=== PATIENT | male | born 1950 | race Hispanic/Latino ===

== ENCOUNTER 2018-07-10 22:00 | Emergency (ER) | payer SELFPAY ==
[2018-07-10 22:39] LABS: Bilirubin Negative (Negative); Blood, Urine Small (Negative); Clarity CLEAR (Clear); Glucose, Urine (Dipstick) 100 mg/dL (Negative); Leukocyte Negative (Negative); Nitrite Negative (Negative); Protein, Urine (Dipstick) 100 mg/dL (Neg-Trace); Specific Gravity, Urine 1.012 (1.002-1.036); Urobilinogen 0.2 mg/dL (0.2-1.0)
[2018-07-10 22:41] LABS: Bacteria/HPF Rare-Few HPF (None Seen); Hyaline Casts/LPF 0-3 HYALINE CAST LPF (0-3 Hyaline); Squamous Epithelial None Seen HPF (0-3); WBC/HPF None Seen HPF (0-3)
[2018-07-10 22:43] LABS: #Monocytes 0.2 thou/uL (0.11-0.59); #Neutrophils 9.3 thou/uL (1.40-6.50); %Basophils 0.3 % (0.0-1.0); %Eosinophils 0.2 % (0.0-10.0); %Lymphocytes 9.3 % (21.0-51.0); %Neutrophils 88.2 % (42.0-75.0); Hemoglobin 16.6 g/dL (14.0-18.0); Mean Corpuscular HGB CONC 34.2 g/dL (32.0-36.0); Mean Corpuscular Hemoglobin 28.7 pg (27.0-31.0); Mean Corpuscular Volume 83.8 fL (78.0-98.0); Mean Platelet Volume 7.5 fL (7.4-10.4); Platelet Count 224 thou/uL (130-400); RBC Distribution Width 12.7 % (11.5-14.5); Red Blood Cell (RBC) Count 5.79 mill/uL (4.70-6.10); White Blood Cell (WBC) Count 10.5 thou/uL (4.8-10.8)
[2018-07-10 23:09] LABS: ALT (SGPT) 29 U/L (8-55); AST (SGOT) 34 U/L (5-34); Albumin 4.5 g/dL (3.4-4.8); Alkaline Phosphatase 99 U/L (40-150); Anion Gap 18 mmol/L (10-20); BUN (Urea Nitrogen) 26 mg/dL (8.4-25.7); Bilirubin, Total 0.6 mg/dL (0.2-1.2); Calc. Creatinine Clearance 0 mL/min (70-130); Calcium 9.2 mg/dL (7.8-10.44); Carbon Dioxide 21 mmol/L (23-31); Chloride 102 mmol/L (98-107); Estimated GFR-MDRD 46; Globulin 3.8 g/dL (2.4-3.5); Glucose 195 mg/dL (80-115); Potassium 3.7 mmol/L (3.5-5.1); Protein, Total 8.3 g/dL (5.8-8.1); Sodium 137 mmol/L (136-145)
[2018-07-10] MEDS ORDERED: Ondansetron HCl/PF 4 MG/2 ML Vial ONE (23:29)
[2018-07-10] MEDS ORDERED: Ketorolac Tromethamine 30 MG/ML VIAL ONE (23:29)
--- NOTE | 2018-07-11 08:47 | CT ---
PRELIMINARY REPORT/[facility]/EMERGENTY AFTER-HOURS PROCEDURE CT Abdomen and Pelvis Without Intravenous Contrast EXAM DATE/TIME: 07/10/2018 11:57 PM CLINICAL HISTORY: 67 years old, male; Pain; Abdominal pain; Flank; Left; Patient HX: Left flank pain x 2 days, decrease d urine, feels hot when urinating. TECHNIQUE: Axial computed tomography images of the abdomen and pelvis without intravenous contrast. Coronal refo rmatted images were created and reviewed. COMPARISON: No relevant prior studies available. FINDINGS: ABDOMEN: Limited evaluation without enteric or IV contrast. Calcified granuloma, anterior right lung base. Liver is decreased in density, consistent with fatty infiltration. Gallbladder, spleen, adrenals and pancreas show no concerning finding. Right kidney demonstrates a punctate nonobstructing calculus. Left kidney demonstrates an upper pole cyst and perinephric stranding with mild hydroureteronephrosis. No ureter stone is seen although ther e is a 2 mm stone in the bladder No evidence of bowel obstruction, pneumoperitoneum or free abdominal fluid. Atherosclerotic change present in the aorta, without aneurysm. PELVIS: Appendix is not seen. No RLQ inflammation to suggest appendicitis. No evidence of acute diverticulitis. Prostate gland is normal in size. Degenerative changes are seen in the lumbar spine with disc height loss. IMPRESSION: Mild left hydroureteronephrosis which may be secondary to a 2 mm stone which has passed into the blad freida at the time of the CT. Thank you for allowing us to participate in the care of your patient. Dictated and Authenticated by: Rocco Holder MD 07/11/2018 1:07 AM Central Time ([place] & [place]) FINAL REPORT CT ABDOMEN AND PELVIS WITHOUT CONTRAST: Date: 07/10/18 FINDING/IMPRESSION: I agree with the preliminary report given by Jeramy. POS: MARILY
== END 2018-07-11 02:08 | disposition home or self-care (01) ==
LOC: ERS 22:00
DX: N13.2 Hydronephrosis with renal and ureteral calculous obstruction (principal); E78.5 Hyperlipidemia, unspecified; I10 Essential (primary) hypertension; M10.9 Gout, unspecified; F32.9 Major depressive disorder, single episode, unspecified
CPT/HCPCS: 36415; 74176; 80053; 81003; 81015; 85025; 96374; 96375; J1885; J2405

== ENCOUNTER 2019-06-21 13:17 | Inpatient (IN) | payer SELFPAY ==
[~2019-06-21 13:17] MED LIST: Heparin 10,000 UNITS/ 10 ML VIAL ONE; Iopamidol 370 76% 100 ML VIAL ONE; Iopamidol 370 76% 50 ML VIAL FS ONE; Nitroglycerin 50 MG/250 ML BOT ONE
[2019-06-21] MEDS ORDERED: Aspirin Chewable 81 MG TAB ONE (13:23)
[2019-06-21 13:34] LABS: #Eosinphils 0.1 thou/uL (0.0-0.7); #Lymphocytes 2.2 thou/uL (1.20-3.40); #Monocytes 0.4 thou/uL (0.11-0.59); #Neutrophils 6.2 thou/uL (1.40-6.50); %Basophils 0.3 % (0.0-1.0); %Eosinophils 0.6 % (0.0-10.0); %Lymphocytes 24.9 % (21.0-51.0); %Neutrophils 70.2 % (42.0-75.0); Hemoglobin 17.7 g/dL (14.0-18.0); Mean Corpuscular HGB CONC 34.2 g/dL (32.0-36.0); Mean Corpuscular Hemoglobin 28.8 pg (27.0-31.0); Mean Corpuscular Volume 84.3 fL (78.0-98.0); Mean Platelet Volume 8.4 fL (7.4-10.4); Platelet Count 179 thou/uL (130-400); RBC Distribution Width 12.8 % (11.5-14.5); Red Blood Cell (RBC) Count 6.14 mill/uL (4.70-6.10); White Blood Cell (WBC) Count 8.9 thou/uL (4.8-10.8)
[2019-06-21 13:42] LABS: PTT 28.2 SEC (22.9-36.1); Prothrombin Time 13.1 SEC (12.0-14.7)
--- NOTE | 2019-06-21 13:42 | RAD ---
Exam: Chest one view HISTORY:Chest pain Comparison: 08/02/2014 FINDINGS: Cardiac silhouette: Normal Pulmonary vessels: Normal Costophrenic angles: Clear Stable pleural-based mass in the right hemithorax. LUNGS: No masses or consolidation. Pneumothorax: None Osseous abnormalities: None IMPRESSION: No acute cardiopulmonary process.
[2019-06-21 13:56] LABS: ALT (SGPT) 34 U/L (8-55); AST (SGOT) 42 U/L (5-34); Albumin 4.7 g/dL (3.4-4.8); Alkaline Phosphatase 94 U/L (40-150); Anion Gap 18 mmol/L (10-20); BUN (Urea Nitrogen) 15 mg/dL (8.4-25.7); Calc. Creatinine Clearance 0 mL/min (70-130); Calcium 9.5 mg/dL (7.8-10.44); Carbon Dioxide 22 mmol/L (23-31); Chloride 102 mmol/L (98-107); Estimated GFR-MDRD 77; Globulin 3.8 g/dL (2.4-3.5); Glucose 177 mg/dL (80-115); Potassium 3.5 mmol/L (3.5-5.1); Protein, Total 8.5 g/dL (5.8-8.1); Sodium 138 mmol/L (136-145)
[2019-06-21 14:19] LABS: CKMB 18.3 ng/mL (0-6.6)
[2019-06-21] MEDS ORDERED: Heparin 10,000 UNITS/1 ML VIAL ONE ×2 (14:24→15:31)
[2019-06-21] MEDS ORDERED: Fentanyl 100 MCG/2 ML VIAL ONE ×2 (14:25→15:31)
[2019-06-21] MEDS ORDERED: Aggrastat 12.5 MG/250 ML 250 ML ONE (14:39)
[2019-06-21] MEDS ORDERED: Adenosine 6 MG/2 ML VIAL ONE (15:10)
[2019-06-21] MEDS ORDERED: TICAGRELOR 90 MG TABLET ONE ×2 (16:02)
[2019-06-21] MEDS: Sodium Chloride 0.9% 1,000 ML IV SCH (16:30)
[2019-06-21 16:50] VITALS: BMI 33.8
[2019-06-21] MEDS ORDERED: Nitroglycerin 0.4 MG TAB (25 Tab Bottle) SL PRN (17:11)
[2019-06-21] MEDS ORDERED: Milk Of Magnesia 30 ML UDCUP PO PRN (17:13)
[2019-06-21] MEDS ORDERED: traMADol HCl 50 MG TAB PO PRN (17:13)
[2019-06-21] MEDS ORDERED: cloNIDine 0.1 MG TAB PO PRN (17:13)
[2019-06-21] MEDS ORDERED: Aggrastat 12.5 MG/250 ML 250 ML IVPB SCH (17:15)
[2019-06-21] MEDS ORDERED: TICAGRELOR 90 MG TABLET PO SCH ×2 (17:15→21:00)
[2019-06-21] MEDS ORDERED: Lisinopril 2.5 MG TAB PO SCH (17:30)
[2019-06-21] MEDS ORDERED: Carvedilol 3.125 MG TAB PO SCH (17:30)
[2019-06-21] MEDS ORDERED: Ondansetron PF 4 MG/2 ML Vial IVP PRN (17:44)
[2019-06-21] MEDS ORDERED: ALPRAZolam 0.25 MG TAB PO PRN (17:46)
[2019-06-21] MEDS ORDERED: Fentanyl 100 MCG/2 ML VIAL SLOW IVP PRN (17:47)
[2019-06-21] MEDS ORDERED: Potassium Chloride 40 MEQ in Premix Bag 1 BAG IVPB SCH (18:00)
[2019-06-21] MEDS ORDERED: Nitroglycerin 50 MG/250 ML BOT 250 ML IVPB SCH (18:15)
[2019-06-21 18:24] LABS: Troponin I 44.878 ng/mL (< 0.028)
--- NOTE | 2019-06-21 18:44 | HP ---
REASON FOR ADMISSION: Acute anterior myocardial infarction. HISTORY OF PRESENT ILLNESS: Mr. Talbot is a 68-year-old gentleman, who has been having chest pain for 3 days, off and on, and became intense and unrelenting today. Much of the pain was across the upper back and across the shoulders. The patient had severe ST-elevation to the top of the R-waves in the anterior leads and acute myocardial infarction was diagnosed. The patient has history of hypertension and hypercholesterolemia, also history of prostatism. ALLERGIES: NONE KNOWN. MEDICATIONS: List is pending at the present time, the patient did have hypertension, and he was also on some medicine for prostatism. SOCIAL HISTORY: The patient has a very supportive family. There are multiple daughters here, who it sounds like really had strongly encouraged him to come in for medical attention. No previous cardiac history. The patient does not use tobacco. PHYSICAL EXAMINATION: GENERAL: This is an ill-appearing 68-year-old man. The patient's family indicated that the patient was diaphoretic and looked very bad at home, and at the present time, he looks critically ill in the emergency room. VITAL SIGNS: His blood pressure is still in 140s systolic. The pulse is in the 80s. The patient was somewhat diaphoretic. NECK: Neck veins normal. Carotid, normal upstrokes. LUNGS: Clear anteriorly and laterally. CARDIAC: Normal S1, normal S2. ABDOMEN: Soft and nontender. EXTREMITIES: Warm and dry. No clubbing or cyanosis or edema. He has good pedal pulses. DIAGNOSTIC STUDIES: EKG as outlined above. ASSESSMENT: 1. Acute anterior myocardial infarction with hyperacute ST segment elevation ("Scribner'). 2. History of hypertension. 3. History of hypercholesterolemia. PLAN: Recommended going to the cardiac catheterization lab in emergency basis. Discussed risk with the family. Discussed risk of stroke, heart attack, iodine allergy, loss of blood supply to leg or kidney, stent thrombosis, stent restenosis. The patient understood and wished to proceed. We did find an acutely occluded proximal LAD, where stenting was done as per the notes in the chart. The patient did have distal atherosclerosis throughout the LAD, had slow reflow, did require intracoronary adenosine, which did help. Prognosis guarded. Discussed in detail with the family. OTHER DIAGNOSES: 1. Hypertension. 2. Hypercholesterolemia. 3. Suspect diabetes, diffusely diseased vessel we will draw hemoglobin A1c in the morning. 4. The patient also has a history of previous stroke with severe left-sided weakness, unable to move the left arm. Job ID: [id number]
[2019-06-21] MEDS ORDERED: Potassium Chloride 40 MEQ in Sodium Chloride 0.9% 250 ML 250 ML IVPB SCH (19:00)
[2019-06-21] MEDS: Atorvastatin Calcium 40 MG TAB PO SCH (20:55)
[2019-06-21] MEDS: Tamsulosin HCl 0.4 MG CAP PO SCH (20:55)
[2019-06-21 22:34] LABS: #Basophils 0.1 thou/uL (0.0-0.2); #Lymphocytes 1.1 thou/uL (1.20-3.40); #Monocytes 0.4 thou/uL (0.11-0.59); #Neutrophils 7.4 thou/uL (1.40-6.50); %Basophils 0.8 % (0.0-1.0); %Eosinophils 0.3 % (0.0-10.0); %Lymphocytes 12.6 % (21.0-51.0); %Monocytes 4.6 % (0.0-10.0); %Neutrophils 81.8 % (42.0-75.0); Hemoglobin 14.8 g/dL (14.0-18.0); Mean Corpuscular HGB CONC 34.2 g/dL (32.0-36.0); Mean Corpuscular Hemoglobin 28.8 pg (27.0-31.0); Mean Corpuscular Volume 84.3 fL (78.0-98.0); Mean Platelet Volume 8.4 fL (7.4-10.4); Platelet Count 183 thou/uL (130-400); RBC Distribution Width 12.8 % (11.5-14.5); Red Blood Cell (RBC) Count 5.15 mill/uL (4.70-6.10); White Blood Cell (WBC) Count 9.1 thou/uL (4.8-10.8)
[2019-06-22 00:14] LABS: Troponin I 90.839 ng/mL (< 0.028)
[2019-06-22 04:29] LABS: #Lymphocytes 1.3 thou/uL (1.20-3.40); #Monocytes 0.6 thou/uL (0.11-0.59); #Neutrophils 7.8 thou/uL (1.40-6.50); %Eosinophils 0.2 % (0.0-10.0); %Lymphocytes 13.5 % (21.0-51.0); %Monocytes 6.4 % (0.0-10.0); %Neutrophils 79.8 % (42.0-75.0); Hemoglobin 14.9 g/dL (14.0-18.0); Mean Corpuscular HGB CONC 34.8 g/dL (32.0-36.0); Mean Corpuscular Hemoglobin 29.6 pg (27.0-31.0); Mean Corpuscular Volume 84.9 fL (78.0-98.0); Mean Platelet Volume 8.1 fL (7.4-10.4); Platelet Count 190 thou/uL (130-400); RBC Distribution Width 12.7 % (11.5-14.5); Red Blood Cell (RBC) Count 5.04 mill/uL (4.70-6.10); White Blood Cell (WBC) Count 9.8 thou/uL (4.8-10.8)
[2019-06-22 04:46] LABS: ALT (SGPT) 48 U/L (8-55); AST (SGOT) 194 U/L (5-34); Albumin 3.8 g/dL (3.4-4.8); Alkaline Phosphatase 64 U/L (40-150); Anion Gap 13 mmol/L (10-20); BUN (Urea Nitrogen) 12 mg/dL (8.4-25.7); Bilirubin, Total 1.2 mg/dL (0.2-1.2); Calc. Creatinine Clearance 127 mL/min (70-130); Calcium 8.7 mg/dL (7.8-10.44); Carbon Dioxide 22 mmol/L (23-31); Cardiac Risk 4.9 (Less than 4.5); Chloride 104 mmol/L (98-107); Cholesterol 166 mg/dl (< 200 Desired); Estimated GFR-MDRD Greater than 90; Globulin 2.9 g/dL (2.4-3.5); Glucose 140 mg/dL (80-115); HDL Cholesterol 34 mg/dL (>60 Neg Risk); LDL Cholesterol, Calculated 104 mg/dL; Potassium 3.5 mmol/L (3.5-5.1); Protein, Total 6.7 g/dL (5.8-8.1); Sodium 135 mmol/L (136-145); Triglycerides 141 mg/dL (Less than 150)
[2019-06-22] MEDS ORDERED: Potassium Chloride 20 MEQ TAB PO SCH (08:15)
--- NOTE | 2019-06-22 08:58 | PRG ---
DATE OF SERVICE: 06/22/2019 SUBJECTIVE: Mr. Talbot is feeling better today. He is not having chest pain or pressure. He is having a little bit of oozing from the groin site, but no significant bleeding. OBJECTIVE: VITAL SIGNS: Blood pressure is 120 systolic, pulse is 66 and it is sinus. LUNGS: Clear. CARDIAC: Normal S1 and normal S2. ABDOMEN: Soft and nontender. EXTREMITIES: There is no clubbing. No cyanosis. No edema. The groin site is soft. PERTINENT LABORATORY DATA: The peak troponin was 90.839. The potassium is 3.5. The hemoglobin A1c is 7 compatible with diabetes. EKG does show improved ST segments with biphasic T-waves compatible with somewhat of recovery pattern. ASSESSMENT: 1. Status post anterior myocardial infarction with successful stent implantation. 2. Diffuse atherosclerosis distal in the same vessel. 3. Diabetes. 4. Mixed hyperlipidemia. 5. Prostatism required Barr catheter. PLAN: 1. Lisinopril will be increased. 2. Carvedilol, looks like low-dose at the present time to be tolerated, dose to be increased as heart rate tolerates. 3. We will need diabetic teaching. 4. Can discontinue Barr later today. 5. Statins. 6. Aspirin. 7. Brilinta. 8. Echocardiogram in a few days to re-evaluate left ventricular function, possibly to be done tomorrow and hopefully can go to a regular room later today or tomorrow. Long-term prognosis guarded. With his diabetes, it is important that he lose weight and exercise on a regular basis as well as take medications. Job ID: [id number]
[2019-06-22] MEDS ORDERED: Lisinopril 2.5 MG TAB PO SCH (09:00)
[2019-06-22] MEDS: Aspirin Chewable 81 MG TAB PO SCH (09:40)
[2019-06-22] MEDS: Carvedilol 3.125 MG TAB PO SCH ×2 (09:41→16:57)
[2019-06-22] MEDS: Lisinopril 5 MG TAB PO SCH ×2 (09:44→21:54)
[2019-06-22] MEDS: TICAGRELOR 90 MG TABLET PO SCH ×2 (09:58→21:54)
[2019-06-22] MEDS: Sodium Chloride 0.9% 1,000 ML IV SCH (17:06)
[2019-06-22] MEDS: Atorvastatin Calcium 40 MG TAB PO SCH (21:53)
[2019-06-22] MEDS: Tamsulosin HCl 0.4 MG CAP PO SCH (21:54)
[2019-06-23] MEDS: TICAGRELOR 90 MG TABLET PO SCH ×2 (09:12→21:33)
[2019-06-23] MEDS: Carvedilol 3.125 MG TAB PO SCH (09:12)
[2019-06-23] MEDS: Lisinopril 5 MG TAB PO SCH ×2 (09:12→21:32)
[2019-06-23] MEDS: Aspirin Chewable 81 MG TAB PO SCH (09:12)
--- NOTE | 2019-06-23 13:15 | PRG ---
DATE OF SERVICE: 06/23/2019 SUBJECTIVE: Mr. Talbot is feeling well today. No complaints. No chest pain or pressure. He has been up walking with the therapist. His daughter says he walks with a cane at home. OBJECTIVE: VITAL SIGNS: Blood pressure 110/60. Pulse 70, it is regular. LUNGS: Clear. CARDIAC: Normal S1. Normal S2. ABDOMEN: Soft and nontender. EXTREMITIES: No clubbing, cyanosis, or edema. ASSESSMENT: 1. Status post anterior myocardial infarction, treated with emergency stent implantation. 2. Diabetes. 3. History of hypertension. 4. Hypercholesterolemia. PLAN: 1. Increase statin to high intensity. 2. Increase carvedilol. 3. Continue BRIGITTE inhibitor, aspirin, and Brilinta. Probably home tomorrow. 4. Echocardiogram to re-evaluate left ventricular function prior to discharge. Job ID: [id number]
[2019-06-23] MEDS: Carvedilol 6.25 MG TAB PO SCH (16:26)
[2019-06-23] MEDS ORDERED: Carvedilol 3.125 MG TAB PO SCH (17:00)
[2019-06-23] MEDS ORDERED: Rosuvastatin 20 MG TAB PO SCH (21:00)
[2019-06-23] MEDS: Tamsulosin HCl 0.4 MG CAP PO SCH (21:32)
[2019-06-24] MEDS: Lisinopril 5 MG TAB PO SCH (08:34)
[2019-06-24] MEDS: Carvedilol 6.25 MG TAB PO SCH (08:34)
[2019-06-24] MEDS: TICAGRELOR 90 MG TABLET PO SCH (08:34)
[2019-06-24] MEDS: Aspirin Chewable 81 MG TAB PO SCH (08:34)
[2019-06-24 11:09] VITALS: BP 109/65; TEMP 98.2
--- NOTE | 2019-06-24 15:36 | DIS ---
DATE OF ADMISSION: 06/21/2019 DATE OF DISCHARGE: 06/24/2019 HISTORY: Mr. Talbot is doing well today. No chest pain or pressure. He is ready for discharge. His lungs are clear. Cardiac, normal S1, normal S2. FINAL DIAGNOSES: 1. Status post anterior myocardial infarction. 2. Hypertension. 3. Diabetes. 4. Hypercholesterolemia. 5. Prostatism. MEDICATIONS AT TIME OF DISCHARGE: 1. Aspirin 81 mg a day. 2. Brilinta 90 mg twice a day. 3. Crestor 40 mg a day. 4. Carvedilol 6.25 mg twice a day. 5. Lisinopril 5 mg twice a day. 6. Flomax 0.4 mg at bedtime. Please see the admission note. HOSPITAL COURSE: Mr. Talbot came to the hospital critically ill with severe EKG changes compatible with acute anterior myocardial infarction. He was taken urgently to the cardiac catheterization lab. He was found to have a proximal LAD occlusion, 50% mid circumflex lesion, 50% right coronary lesion with some aneurysmal dilatation of that vessel. The patient was treated percutaneously. There were 2 stents placed. The distal vessel was VERY DIFFUSELY DISEASED. However, the proximal area was treated with a 3.5 x 20 mm drug-coated stent and it was overlapped with a 3.0 x 32 mm stent. The distal stent was placed first. All the proximal and mid segment was dilated 3.5 mm to distal to 3.0. The patient's ejection fraction 40%. The patient really did very well in the hospital. He did have urinary retention. He had known prostatism. He had a Barr catheter overnight that was removed the next morning. His peak troponin was 90.839. Sodium is 135, creatinine is 0.78. The patient had a cholesterol drawn on the 4th, the LDL was 104, HDL was 34, triglyceride was 141. The patient had the heart failure medicines titrated up. The ejection fraction yesterday on echo was 40% to 45%. The patient also has diabetes. The hemoglobin A1c was elevated at 7. The patient is obese. The patient is released home. For the present time, his blood sugars were really not elevated; however, just slightly out of the normal range at 111. I think if he changes his diet and exercises, can probably be treated this way. I did not start any diabetes medicine presently. The family was taught about the importance of weight loss, exercise and change in diet. The patient will be followed up in the office. We gave him samples of Brilinta. The family indicated they are not sure he is going to be able to afford it long-term, therefore we gave samples. If we have to, we can change him to Plavix, Brilinta is the superior medicine, but I think he cannot afford it. We gave him Plavix 600 mg loading dose, then 75 a day and stop the Brilinta, if they are unable to afford that long-term. The patient can be released home at this time with a guarded long-term prognosis. Job ID: [id number]
== END 2019-06-24 15:32 | disposition home or self-care (01) | DRG 247 ==
LOC: ERS 13:17 → CCL 14:12 → CCU 14:30 → 2NO 06-22 16:43
PROVIDERS: ADMIT Internal Medicine Cardiovascular Disease; ATTEND Internal Medicine Cardiovascular Disease
PROC: 027035Z Dilation of Coronary Artery, One Artery with Two Drug-eluting Intraluminal Devices, Percutaneous Approach (ICD-10-PCS; principal; 2019-06-21)
PROC: 4A023N7 Measurement of Cardiac Sampling and Pressure, Left Heart, Percutaneous Approach (ICD-10-PCS; 2019-06-21)
PROC: B2111ZZ Fluoroscopy of Multiple Coronary Arteries using Low Osmolar Contrast (ICD-10-PCS; 2019-06-21)
PROC: B2151ZZ Fluoroscopy of Left Heart using Low Osmolar Contrast (ICD-10-PCS; 2019-06-21)
DX: I21.09 ST elevation (STEMI) myocardial infarction involving other coronary artery of anterior wall (principal); I10 Essential (primary) hypertension; E78.00 Pure hypercholesterolemia, unspecified; E11.9 Type 2 diabetes mellitus without complications; E78.2 Mixed hyperlipidemia; N40.0 Benign prostatic hyperplasia without lower urinary tract symptoms; Z79.899 Other long term (current) drug therapy
CPT/HCPCS: 36415; 36416; 71045; 76942; 80053; 80061; 82553; 83036; 83880; 84484; 85025; 85347; 85610; 85730; 92928; 92977; 93005; 93010; 93306; 93458; 93798; 96365; 96374; 96376; C1725; C1769; C1874; C1887; C9600; J0153; J1644; J2405; J3010; J3246; J3480; J7050; Q9967

== ENCOUNTER 2019-06-25 22:06 | Inpatient (IN) | payer SELFPAY ==
[2019-06-25] MEDS ORDERED: Ondansetron PF 4 MG/2 ML Vial ONE ×2 (22:38→22:48)
[2019-06-25] MEDS ORDERED: Morphine 2 MG/ML SYRINGE ONE (22:41)
[2019-06-25] MEDS ORDERED: Heparin 10,000 UNITS/1 ML VIAL ONE ×2 (22:47→23:54)
[2019-06-25] MEDS ORDERED: Nitroglycerin 100MG/250ML BOT 250 ML ONE (22:48)
[2019-06-25] MEDS ORDERED: Lidocaine 1% (PF) 30 ML VIAL ONE (22:48)
[2019-06-25 22:52] LABS: ALT (SGPT) 23 U/L (8-55); AST (SGOT) 25 U/L (5-34); Alkaline Phosphatase 89 U/L (40-150); Anion Gap 13 mmol/L (10-20); BUN (Urea Nitrogen) 13 mg/dL (8.4-25.7); Bilirubin, Total 1.7 mg/dL (0.2-1.2); Calc. Creatinine Clearance 0 mL/min (70-130); Calcium 9.5 mg/dL (7.8-10.44); Carbon Dioxide 21 mmol/L (23-31); Chloride 101 mmol/L (98-107); Estimated GFR-MDRD 65; Globulin 3.6 g/dL (2.4-3.5); Glucose 172 mg/dL (80-115); Potassium 3.6 mmol/L (3.5-5.1); Protein, Total 7.6 g/dL (5.8-8.1); Sodium 131 mmol/L (136-145)
[2019-06-25 22:54] LABS: Mean Corpuscular HGB CONC 34.8 g/dL (32.0-36.0); Mean Corpuscular Hemoglobin 29.3 pg (27.0-31.0); Mean Platelet Volume 8.7 fL (7.4-10.4); Platelet Count 202 thou/uL (130-400); RBC Distribution Width 12.6 % (11.5-14.5); Red Blood Cell (RBC) Count 5.46 mill/uL (4.70-6.10); White Blood Cell (WBC) Count 18.2 thou/uL (4.8-10.8)
--- NOTE | 2019-06-25 23:05 | RAD ---
FRONTAL RADIOGRAPH CHEST: 06/25/2019 HISTORY: Myocardial infarction. COMPARISON: 06/21/2019 FINDINGS: There is a stable mass density overlying the right upper lobe region, unchanged when compared to stud ies dating back to 08/02/2014. No pneumothorax, pleural fluid, focal consolidation, or alveolar neli a. IMPRESSION: No acute findings. POS: OFF
[2019-06-25 23:15] LABS: Band 9 % (5-11); Lymphocytes 9 % (21-51); MDiff Complete? YES; Monocytes 5 % (0-10); Neutrophil 76 % (42-75)
[2019-06-25 23:17] LABS: CKMB 3.1 ng/mL (0-6.6)
[2019-06-25] MEDS ORDERED: Fentanyl 100 MCG/2 ML VIAL ONE (23:27)
[2019-06-25] MEDS ORDERED: Aggrastat 12.5 MG/250 ML 250 ML ONE (23:52)
[2019-06-26] MEDS ORDERED: Acetaminophen/Codeine 30-300mg Tablet PO PRN ×2 (00:39)
[2019-06-26] MEDS ORDERED: Nitroglycerin 0.4 MG TAB (25 Tab Bottle) SL PRN (00:39)
[2019-06-26] MEDS ORDERED: Sodium Chloride 0.9% 200 ML IV PRN (00:39)
[2019-06-26] MEDS ORDERED: TICAGRELOR 90 MG TABLET PO SCH (00:45)
[2019-06-26 00:47] VITALS: BMI 33.2
[2019-06-26] MEDS ORDERED: Aggrastat 12.5 MG/250 ML 250 ML IVPB SCH (01:00)
[2019-06-26] MEDS ORDERED: Heparin 1,000 UNITS/ML VIAL SLOW IVP SCH (01:00)
[2019-06-26] MEDS: Sodium Chloride 0.9% 1,000 ML IV SCH ×2 (01:24→12:13)
--- NOTE | 2019-06-26 02:07 | HP ---
REASON FOR ADMISSION: Recurrent chest pain, abnormal EKG. HISTORY OF PRESENT ILLNESS: Mr. Wan Talbot is a 68-year-old gentleman. The patient presented with an extensive anterior myocardial infarction on 06/21/2019. The patient had SEVERE ST elevation in the anterior leads, was taken to the cardiac catheterization lab, was found to have a proximal LAD occlusion. This was successfully stented. Two stents were placed. A 3.0 x 32 mm stent and a 3.5 x 20 mm stent. There was a relatively disease-free segments of only just a very short segment of the LAD and then diffuse atherosclerosis throughout the mid and distal vessel throughout the vessel. The circumflex and the right coronary had 50% nonobstructive plaques. The patient had a troponin level of 90.839. The patient was doing well. The ejection fraction approximately was in the 40% range. The patient was released home yesterday. He is on aspirin, Plavix, carvedilol, lisinopril, Crestor, and also Brilinta. He was given samples of Brilinta. The patient went home. The family said he did not take the aspirin, but that would be just this morning's dose, and they did not fill the medicines till today, so he did not get the other medicines till this evening. He had some upper shoulder pain, which was similar to his angina. Apparently, one of the family members gave him some nitroglycerin, which he thought may have helped. The patient then according to the family, got up out of bed. He has had a previous stroke and he fell and when he was on the ground, he did report some shoulder pain, therefore he was brought to the emergency room. He had some ST elevation in the anterior leads and a possible acute FL was diagnosed, and we were called for an emergency procedure. PAST MEDICAL HISTORY: He has had a previous stroke, diabetes recently diagnosed. MEDICATIONS: As outlined above. ALLERGIES: NONE KNOWN. SOCIAL HISTORY: He has a very supportive family. PAST SURGICAL HISTORY: As outlined above. REVIEW OF SYSTEMS: CONSTITUTIONAL: No significant weight gain or loss. VISION: No changes. HEARING: No changes. PULMONARY: No cough or wheezing. GASTROINTESTINAL: No nausea, vomiting, or diarrhea. PHYSICAL EXAMINATION: GENERAL: This was an elderly gentleman, resting comfortably. VITAL SIGNS: Blood pressure was 100 to 110 systolic, pulse in the 80s. HEENT: Eyes, sclerae nonicteric. Mouth, mucous membranes moist. NECK: Supple, no lymphadenopathy. LUNGS: Clear. CARDIAC: Normal S1, normal S2. There is no murmur, rub, or gallop. ABDOMEN: Obese, nontender, no hepatosplenomegaly. EXTREMITIES: Warm and dry. No clubbing or cyanosis. There is no edema. IMAGING STUDIES: EKG did show ST elevation in the anterior leads with Q-waves. The patient was taken to the cardiac catheterization lab on an emergency basis, revealed the followin. Left main, no obstructive stenosis. 2. LAD stent patent with good flow. I did of course go across several septal perforating arteries in the diagonal branch as well. The distal vessel is diffusely atherosclerotic, but the stent is patent with good flow. 3. Circumflex 50% lesion. 4. Right coronary 50% lesions. ASSESSMENT: 1. Patent stent with good flow. 2. Diffuse atherosclerosis. 3. Some noncompliance with medication. They did not fill the medicine until later and did not take aspirin this morning. I again stressed the importance of taking medicines as prescribed. 4. Diabetes. We will consult for further management. 5. I will be out for the next few days. Dr. Vanessa will be seeing the patient tomorrow morning. Job ID: [id number]
[2019-06-26 04:24] LABS: Critical Call Chem Troponin I RESULT DECREASING; Troponin I 6.407 ng/mL (< 0.028)
[2019-06-26] MEDS: Lisinopril 2.5 MG TAB PO SCH (08:03)
[2019-06-26] MEDS: TICAGRELOR 90 MG TABLET PO SCH ×2 (08:04→20:41)
[2019-06-26] MEDS: Carvedilol 3.125 MG TAB PO SCH ×2 (08:04→18:10)
[2019-06-26] MEDS: Aspirin 81 mg Enteric Coated Tablet PO SCH (08:04)
[2019-06-26] MEDS ORDERED: HumaLOG 300 UNITS/3 ML VIAL SC PRN ×2 (17:32→17:36)
[2019-06-26] MEDS ORDERED: Dextrose 50% Abboject 50 ML SYRINGE IVP PRN (17:36)
[2019-06-26] MEDS ORDERED: Dextrose 5% in Water 1,000 ML IV PRN (17:36)
[2019-06-26 18:52] LABS: Bilirubin Negative (Negative); Blood, Urine 1+ (Negative); Clarity Turbid (Clear); Glucose, Urine (Dipstick) Normal (Negative); Leukocyte 250 Leu/uL (Negative); Nitrite Negative (Negative); Protein, Urine (Dipstick) 30 mg/dL (Neg-Trace); Squamous Epithelial None Seen HPF (0-3); WBC/HPF 21-50 HPF (0-3)
[2019-06-26 19:16] LABS: Bacteria/HPF 4+ HPF (None Seen); Sperm/HPF 2+ HPF (None Seen)
[2019-06-26] MEDS ORDERED: Prevnar 13-Val Conj/PF 0.5 ML SYRINGE IM ONE (21:00)
[2019-06-26] MEDS ORDERED: Rosuvastatin 20 MG TAB PO SCH (21:00)
--- NOTE | 2019-06-27 00:02 | CON ---
DATE OF CONSULTATION: REASON FOR CONSULTATION: Medical management. HISTORY OF PRESENT ILLNESS: This is a 68-year-old [place] gentleman with a past history of CVA, who was first admitted on 06/21/2019 with an extensive anterior myocardial infarction. He had severe ST-elevation in the anterior leads. He had very elevated troponins. He was taken to the cardiac catheterization lab last admission and was found to have proximal LAD occlusion. It was stented successfully by Dr. Arenas. He did well during the hospitalization but following discharge, he delayed filling his prescriptions and did not start his medications right away. Last night, he was developing some chest pain. He tried to get out of bed when he fell. He developed increased pain and presented to the emergency department. In the emergency department, he continued to have abnormal EKG changes with severely elevated ST elevations as well as persistently elevated troponin levels. Due to these changes and symptoms of an acute SC, he was taken back to the logging rafter laborer by Dr. Arenas, who stated that the stents appeared patent, continued to have distal disease which may be continuing to cause him to have symptoms, but was otherwise stable. He is now being admitted for further evaluation and treatment and stabilization, as well as ensuring his compliance with his medical treat. During his last hospitalization, he was found to be diabetic which he did not have before. He was started on medications to control his blood sugars. He does have a history of noncompliance in the past and he was recently followed up again in the office after not taking his medications for several months. PAST MEDICAL HISTORY: Hypertension, hypercholesterolemia, history of enlarged prostate, history of depression since CVA in the past with resultant left-sided hemiparesis. MEDICATIONS: Include: 1. Flomax 0.4 mg daily. 2. Celexa 10 mg daily. 3. Carvedilol 6.25 mg b.i.d. 4. Crestor 40 mg daily. 5. Lisinopril 5 mg b.i.d. 6. Hydralazine 50 mg b.i.d. ALLERGIES: NO KNOWN DRUG ALLERGIES. PAST SURGICAL HISTORY: Recent cardiac cath with stent placement by Dr. Arenas on 06/21/2019. FAMILY HISTORY: Positive for diabetes. Positive for heart disease. SOCIAL HISTORY: Remote smoker, none recently. Rare alcohol. He is retired. REVIEW OF SYSTEMS: GENERAL: As per the history of present illness, he denies any recent fevers, chills, or recent illness. HEENT: Denies headache, vision or hearing changes. No recent infections. CARDIAC: As per the history of present illness. PULMONARY: Denies cough or shortness of breath. GI: Denies nausea, vomiting, or diarrhea. : History of enlarged prostate with some difficulty with urination. No dysuria or hematuria. NEUROLOGIC: Left hemiparesis secondary to CVA. Continues to have falls at home. PSYCHIATRIC: History of depression and anxiety. PHYSICAL EXAMINATION: VITAL SIGNS: Temperature 97.5, pulse of 86 to 89, respirations 18 to 20, blood pressure 120/62, pulse ox is 96% on room air. GENERAL: He is awake and alert. Speech is clear. He is Maori-speaking with his son and daughter interpreting. Mucosa is moist. NECK: Supple. No bruit. HEART: Regular rate and rhythm without murmurs. LUNGS: Clear bilaterally. No wheezes, rales, or rhonchi. ABDOMEN: Obese, soft, nontender, and nondistended. EXTREMITIES: With no edema. Left-sided hemiparesis with decreased strength in upper and lower extremities. 2+ peripheral pulses bilaterally. LABORATORY DATA: White blood cell count 18,200, hemoglobin and hematocrit 16 and 45.9, and platelets of 202. Sodium 131, potassium 3.6, chloride 101, CO2 of 21, BUN and creatinine 13 and 1.13 with a GFR of 65. Serum glucose is 172. AST and ALT are normal. Troponin I initially 9.29, second is 6.40. Cardiac cath as described above. Urinalysis and urine culture pending. ASSESSMENT AND PLAN: This is a 68-year-old gentleman with history of hypertension, hyperlipidemia, status post cerebrovascular accident, depression, now admitted for chest pain, recent ST-elevation myocardial infarction, and noncompliance. 1. Coronary artery disease, status post myocardial infarction. Continue medications as per Cardiology and plan per them. 2. Possible urinary tract infection. Checking UA, C and S. This may be the source of his elevation in white blood cells. 3. Noncompliance. Encouraged him to be compliant with his medications, both with him and his family, will likely need home health and further assistance. 4. Weakness. Disposition secondary to fall. Will consult Rehab for short-term placement. 5. Hyperglycemia, new onset type 2 diabetes. Due to cost and lack of insurance, will start with metformin and sulfonylurea. If he is able, GLP-1 antagonist would be beneficial for him. We will continue to monitor. Job ID: [id number]
[2019-06-27] MEDS: Sodium Chloride 0.9% 1,000 ML IV SCH (00:30)
[2019-06-27 04:48] LABS: #Lymphocytes 1.3 thou/uL (1.20-3.40); #Monocytes 0.9 thou/uL (0.11-0.59); #Neutrophils 12.8 thou/uL (1.40-6.50); %Eosinophils 0.2 % (0.0-10.0); %Lymphocytes 8.3 % (21.0-51.0); %Monocytes 6.3 % (0.0-10.0); %Neutrophils 85.2 % (42.0-75.0); Hemoglobin 13.5 g/dL (14.0-18.0); Mean Corpuscular HGB CONC 32.7 g/dL (32.0-36.0); Mean Corpuscular Hemoglobin 28.3 pg (27.0-31.0); Mean Corpuscular Volume 86.5 fL (78.0-98.0); Mean Platelet Volume 8.2 fL (7.4-10.4); Platelet Count 162 thou/uL (130-400); Red Blood Cell (RBC) Count 4.77 mill/uL (4.70-6.10)
[2019-06-27 05:08] LABS: Anion Gap 10 mmol/L (10-20); BUN (Urea Nitrogen) 11 mg/dL (8.4-25.7); Calc. Creatinine Clearance 117 mL/min (70-130); Calcium 8.6 mg/dL (7.8-10.44); Carbon Dioxide 21 mmol/L (23-31); Chloride 106 mmol/L (98-107); Estimated GFR-MDRD Greater than 90; Glucose 134 mg/dL (80-115); Potassium 3.5 mmol/L (3.5-5.1); Sodium 133 mmol/L (136-145)
[2019-06-27 05:14] LABS: Critical Call Chem Troponin I RESULT DECREASING
[2019-06-27] MEDS: Lisinopril 2.5 MG TAB PO SCH (08:23)
[2019-06-27] MEDS: Carvedilol 3.125 MG TAB PO SCH ×2 (08:23→16:36)
[2019-06-27] MEDS: Aspirin 81 mg Enteric Coated Tablet PO SCH (08:24)
[2019-06-27] MEDS: TICAGRELOR 90 MG TABLET PO SCH (08:24)
[2019-06-27] MEDS ORDERED: Tamsulosin HCl 0.4 MG CAP PO SCH (09:00)
[2019-06-27] MEDS ORDERED: Citalopram 10 MG TAB PO SCH (09:00)
[2019-06-27] MEDS ORDERED: Cefdinir 300 MG CAP PO SCH ×2 (10:15→21:00)
[2019-06-27 11:09] VITALS: TEMP 97.8
[2019-06-27 11:59] VITALS: BP 110/66
[2019-06-27] MEDS ORDERED: metFORMIN 500 MG TAB PO SCH (17:00)
--- NOTE | 2019-06-27 17:48 | PRG ---
DATE OF SERVICE: 06/27/2019 SUBJECTIVE: The patient is feeling well. He denies chest pain or shortness of breath. He does feel some pressure when he lays down, but improved whenever he sits up. Nursing reports that he is ambulating with cardiac rehab in the halls without difficulty. He did not meet criteria for inpatient rehab, but looking into outpatient cardiac rehab. OBJECTIVE: VITAL SIGNS: Temperature 97.8, pulse is 72, respirations 18, blood pressure 128/58, and pulse ox 99% on room air. GENERAL: He is awake and alert, in no acute distress. Speech is clear. NECK: Supple. HEART: Regular rate and rhythm. LUNGS: Clear. ABDOMEN: Soft. EXTREMITIES: With trace edema. NEUROLOGIC: Baseline right hemiparesis. LABORATORY DATA: White blood cell count down to 15,000, hemoglobin and hematocrit 13.5 and 41.2, and platelets of 162. Sodium 133, potassium 3.5, chloride 106, CO2 of 21, BUN and creatinine are 11 and 0.81. Accu-Cheks of 123, 178, 182. ASSESSMENT AND PLAN: This is a 68-year-old gentleman with recent acute myocardial infarction with ST elevation, but now admitted after a fall at home. He is status post cardiac catheterization by Dr. Arenas, which seems stable. 1. Recent ST-elevation myocardial infarction. Further plan per Cardiology. Needs to be stable on his medications at this time. 2. Hypertension, stable. 3. Type 2 diabetes. We will continue metformin. 4. Recent urinary tract infection, starting cephalosporins at this time. 5. Disposition, hopefully home with outpatient cardiac rehab once okay with Cardiology. Instructions given by myself as well as nursing as far as the importance of compliance with his medications and the patient and family agree. Job ID: [id number]
== END 2019-06-27 17:11 | disposition home health service (06) | DRG 282 ==
LOC: ERS 22:06 → 2NO 23:15 → CCL 23:21 → CCU 23:33 → 2NO 06-26 10:11
PROVIDERS: ADMIT Internal Medicine Cardiovascular Disease; ATTEND Internal Medicine Cardiovascular Disease
PROC: 4A023N7 Measurement of Cardiac Sampling and Pressure, Left Heart, Percutaneous Approach (ICD-10-PCS; principal; 2019-06-25)
PROC: B2111ZZ Fluoroscopy of Multiple Coronary Arteries using Low Osmolar Contrast (ICD-10-PCS; 2019-06-25)
PROC: B2151ZZ Fluoroscopy of Left Heart using Low Osmolar Contrast (ICD-10-PCS; 2019-06-25)
DX: I21.3 ST elevation (STEMI) myocardial infarction of unspecified site (principal); I10 Essential (primary) hypertension; F32.9 Major depressive disorder, single episode, unspecified; I25.10 Atherosclerotic heart disease of native coronary artery without angina pectoris; E11.65 Type 2 diabetes mellitus with hyperglycemia; Z86.73 Personal history of transient ischemic attack (TIA), and cerebral infarction without residual deficits; Z91.14 Patient's other noncompliance with medication regimen
CPT/HCPCS: 36415; 36416; 71045; 80048; 80053; 81001; 82553; 84484; 85025; 85347; 87077; 87086; 87186; 90471; 90670; 93005; 93798; 94760; 96365; 96375; C1769; G0009; J1644; J2001; J2270; J2405; J3010; J3246

== ENCOUNTER 2021-02-24 09:23 | Emergency (ER) | payer MEDICAID, SELFPAY ==
[2021-02-24 10:14] LABS: #Eosinphils 0.1 thou/uL (0.0-0.7); #Lymphocytes 1.6 thou/uL (1.20-3.40); #Monocytes 0.3 thou/uL (0.11-0.59); #Neutrophils 6.8 thou/uL (1.40-6.50); %Basophils 0.1 % (0.0-1.0); %Eosinophils 0.7 % (0.0-10.0); %Lymphocytes 17.9 % (21.0-51.0); %Monocytes 3.8 % (0.0-10.0); %Neutrophils 77.4 % (42.0-75.0); Hemoglobin 15.8 g/dL (14.0-18.0); Mean Corpuscular HGB CONC 34.3 g/dL (32.0-36.0); Mean Corpuscular Hemoglobin 28.7 pg (27.0-31.0); Mean Corpuscular Volume 83.8 fL (78.0-98.0); Mean Platelet Volume 8.2 fL (7.4-10.4); Platelet Count 185 thou/uL (130-400); RBC Distribution Width 12.9 % (11.5-14.5); White Blood Cell (WBC) Count 8.7 thou/uL (4.8-10.8)
[2021-02-24 10:34] LABS: ALT (SGPT) 16 U/L (8-55); AST (SGOT) 16 U/L (5-34); Albumin 4.1 g/dL (3.4-4.8); Alkaline Phosphatase 60 U/L (40-110); Anion Gap 13 mmol/L (10-20); BUN (Urea Nitrogen) 14 mg/dL (8.4-25.7); Bilirubin, Total 0.7 mg/dL (0.2-1.2); Calc. Creatinine Clearance 0 mL/min (70-130); Calcium 8.7 mg/dL (7.8-10.44); Carbon Dioxide 25 mmol/L (23-31); Chloride 101 mmol/L (98-107); Globulin 3.2 g/dL (2.4-3.5); Glucose 166 mg/dL (80-115); Potassium 4.1 mmol/L (3.5-5.1); Protein, Total 7.3 g/dL (5.8-8.1); Sodium 135 mmol/L (136-145)
[2021-02-24] MEDS ORDERED: Iopamidol-370 76% 500 ML 1 ML ONE (11:22)
[2021-02-24 11:40] LABS: Bacteria/HPF None Seen HPF (None Seen); Bilirubin Negative (Negative); Blood, Urine Trace (Negative); Clarity Clear (Clear); Glucose, Urine (Dipstick) Normal (Negative); Ketone, Urine Negative (Negative); Leukocyte Negative Leu/uL (Negative); Nitrite Negative (Negative); Protein, Urine (Dipstick) Negative (Neg-Trace); RBC/HPF 0-3 HPF (0-3); Squamous Epithelial None Seen HPF (0-3); Urobilinogen Normal mg/dL (Less than 2); WBC/HPF 0-3 HPF (0-3); pH, Urine 6.5 (5.0-9.0)
== END 2021-02-24 12:25 | disposition home or self-care (01) ==
LOC: ERS 09:23
DX: M54.5 Low back pain (principal); E78.5 Hyperlipidemia, unspecified; I10 Essential (primary) hypertension; M10.9 Gout, unspecified; Z86.73 Personal history of transient ischemic attack (TIA), and cerebral infarction without residual deficits
CPT/HCPCS: 74177; 80053; 81003; 81015; 84484; 85025; Q9967

== ENCOUNTER 2021-08-24 17:18 | Emergency (ER) | payer MEDICAID | END 2021-08-24 19:05 | disposition home or self-care (01) | LOC: ERS 17:18 | DX: R19.7 Diarrhea, unspecified (principal); I10 Essential (primary) hypertension; E78.5 Hyperlipidemia, unspecified; M10.9 Gout, unspecified; Z86.73 Personal history of transient ischemic attack (TIA), and cerebral infarction without residual deficits | CPT/HCPCS: 99283 ==

== ENCOUNTER 2022-11-17 22:09 | Inpatient (IN) | payer SELFPAY ==
[~2022-11-17 22:09] MED LIST changes: -Heparin 10,000 UNITS/ 10 ML VIAL ONE; -Iopamidol 370 76% 100 ML VIAL ONE; -Iopamidol 370 76% 50 ML VIAL FS ONE; +Iopamidol-370 76% 500 ML 1 ML ONE; -Nitroglycerin 50 MG/250 ML BOT ONE
[2022-11-17 23:37] LABS: #Lymphocytes 0.8 thou/uL (1.20-3.40); #Monocytes 0.6 thou/uL (0.11-0.59); #Neutrophils 5.2 thou/uL (1.40-6.50); %Eosinophils 0.1 % (0.0-10.0); %Lymphocytes 12.1 % (21.0-51.0); %Monocytes 9.3 % (0.0-10.0); %Neutrophils 78.5 % (42.0-75.0); Hemoglobin 15.2 g/dL (14.0-18.0); Mean Corpuscular HGB CONC 34.7 g/dL (32.0-36.0); Mean Corpuscular Hemoglobin 29.4 pg (27.0-31.0); Mean Corpuscular Volume 84.8 fl (78.0-98.0); Mean Platelet Volume 8.7 fL (7.4-10.4); Platelet Count 134 10x3/uL (130-400); RBC Distribution Width 12.3 % (11.5-14.5); Red Blood Cell (RBC) Count 5.17 mill/uL (4.70-6.10); White Blood Cell (WBC) Count 6.6 10x3/uL (4.8-10.8)
[2022-11-18] LABS: ALT (SGPT) 14 U/L (8-55); AST (SGOT) 22 U/L (5-34); Albumin 4.1 g/dL (3.4-4.8); Alkaline Phosphatase 50 U/L (40-110); Anion Gap 18 mmol/L (10-20); BUN (Urea Nitrogen) 17 mg/dL (8.4-25.7); Bilirubin, Total 1.1 mg/dL (0.2-1.2); Calc. Creatinine Clearance 0 mL/min (70-130); Calcium 8.4 mg/dL (7.8-10.44); Carbon Dioxide 19 mmol/L (23-31); Chloride 101 mmol/L (98-107); Estimated GFR 60; Globulin 2.6 g/dL (2.4-3.5); Glucose 146 mg/dL (83-110); Potassium 3.9 mmol/L (3.5-5.1); Protein, Total 6.7 g/dL (5.8-8.1); Sodium 134 mmol/L (136-145)
[2022-11-18 00:03] LABS: SARS-CoV-2 NAA Rapid Test Not Detected (NotDetected)
[2022-11-18] MEDS ORDERED: Azithromycin 500 MG VIAL ONE (00:05)
[2022-11-18] MEDS ORDERED: cefTRIAXone\\ROCEPHIN 2 GM VIAL ONE (00:05)
[2022-11-18] MEDS ORDERED: Aspirin Chewable 81 MG TAB ONE (00:05)
[2022-11-18] MEDS ORDERED: Oseltamivir 75 MG CAP PO SCH (01:45)
[2022-11-18 01:56] LABS: Bacteria/HPF None Seen HPF (None Seen); Bilirubin Negative (Negative); Blood, Urine Trace (Negative); Clarity Clear (Clear); Glucose, Urine (Dipstick) Normal (Negative); Ketone, Urine Negative (Negative); Leukocyte Negative Leu/uL (Negative); Nitrite Negative (Negative); Protein, Urine (Dipstick) 10 mg/dL (Neg-Trace); RBC/HPF 0-3 HPF (0-3); Squamous Epithelial 0-3 HPF (0-3); Urobilinogen Normal mg/dL (Less than 2); WBC/HPF 0-3 HPF (0-3); pH, Urine 5.5 (5.0-9.0)
[2022-11-18] MEDS ORDERED: Acetaminophen 325 MG TAB PO PRN (03:59)
[2022-11-18] MEDS ORDERED: Ondansetron ODT 4 MG TAB PO PRN (03:59)
[2022-11-18] MEDS ORDERED: Ondansetron PF 4 MG/2 ML Vial IVP PRN (03:59)
[2022-11-18] MEDS ORDERED: Dextrose 50% Abboject 50 ML SYRINGE SLOW IVP PRN (04:10)
[2022-11-18] MEDS ORDERED: Dextrose 5% in Water 1,000 ML IV PRN (04:10)
[2022-11-18] MEDS ORDERED: Insulin Regular 300 UNITS/3 ML VIAL SC PRN ×2 (04:10)
[2022-11-18] MEDS ORDERED: Lactated Ringer's 1,000 ML IV SCH (05:00)
[2022-11-18 05:52] VITALS: BMI 32.3
[2022-11-18] MEDS: Enoxaparin Sodium 40 MG/0.4 ML SYRINGE SC SCH (09:11)
[2022-11-18] MEDS ORDERED: FLU VACC QS2022-23(65YR UP)/PF 240 MCG/0.7 ML SYRINGE IM ONE (14:00)
[2022-11-18] MEDS: Oseltamivir 75 MG CAP PO SCH (20:09)
[2022-11-18] MEDS ORDERED: cefTRIAXone\\ROCEPHIN 1 GM in Sodium Chloride 0.9% 100 ML IVPB SCH (21:00)
[2022-11-18] MEDS ORDERED: Azithromycin 500 MG in Sodium Chloride 0.9% 250 ML 250 ML IVPB SCH (22:00)
[2022-11-19 04:54] LABS: #Lymphocytes 1.4 thou/uL (1.20-3.40); #Monocytes 0.5 thou/uL (0.11-0.59); #Neutrophils 1.6 thou/uL (1.40-6.50); %Basophils 0.1 % (0.0-1.0); %Lymphocytes 39.3 % (21.0-51.0); %Monocytes 14.2 % (0.0-10.0); %Neutrophils 45.4 % (42.0-75.0); Hemoglobin 15.3 g/dL (14.0-18.0); Mean Corpuscular HGB CONC 34.3 g/dL (32.0-36.0); Mean Corpuscular Hemoglobin 29.7 pg (27.0-31.0); Mean Corpuscular Volume 86.5 fl (78.0-98.0); Mean Platelet Volume 8.6 fL (7.4-10.4); Platelet Count 126 10x3/uL (130-400); RBC Distribution Width 12.7 % (11.5-14.5); Red Blood Cell (RBC) Count 5.14 mill/uL (4.70-6.10); White Blood Cell (WBC) Count 3.6 10x3/uL (4.8-10.8)
[2022-11-19 05:21] LABS: Anion Gap 15 mmol/L (10-20); BUN (Urea Nitrogen) 19 mg/dL (8.4-25.7); Calc. Creatinine Clearance 82 mL/min (70-130); Calcium 8.6 mg/dL (7.8-10.44); Carbon Dioxide 21 mmol/L (23-31); Chloride 105 mmol/L (98-107); Estimated GFR 75; Glucose 90 mg/dL (83-110); Potassium 3.7 mmol/L (3.5-5.1); Sodium 137 mmol/L (136-145)
[2022-11-19 08:39] LABS: Magnesium 1.9 mg/dL (1.6-2.6)
[2022-11-19] MEDS: Enoxaparin Sodium 40 MG/0.4 ML SYRINGE SC SCH (10:27)
[2022-11-19] MEDS: Oseltamivir 75 MG CAP PO SCH (10:27)
[2022-11-19 13:35] VITALS: BP 135/77; TEMP 97.8
== END 2022-11-19 14:45 | disposition home or self-care (01) | DRG 193 ==
LOC: ERS 22:09 → 2NO 11-18 03:22
PROVIDERS: ADMIT Internal Medicine; ATTEND Internal Medicine
DX: J10.1 Influenza due to other identified influenza virus with other respiratory manifestations (principal); J96.01 Acute respiratory failure with hypoxia; I69.954 Hemiplegia and hemiparesis following unspecified cerebrovascular disease affecting left non-dominant side; E87.20 Acidosis, unspecified; E78.5 Hyperlipidemia, unspecified; M10.9 Gout, unspecified; F32.A Depression, unspecified; I25.10 Atherosclerotic heart disease of native coronary artery without angina pectoris; K21.9 Gastro-esophageal reflux disease without esophagitis; E11.22 Type 2 diabetes mellitus with diabetic chronic kidney disease; N18.2 Chronic kidney disease, stage 2 (mild); D69.6 Thrombocytopenia, unspecified; E66.9 Obesity, unspecified; I12.9 Hypertensive chronic kidney disease with stage 1 through stage 4 chronic kidney disease, or unspecified chronic kidney disease; I25.2 Old myocardial infarction; Z68.32 Body mass index [BMI] 32.0-32.9, adult; Z90.49 Acquired absence of other specified parts of digestive tract; Z79.82 Long term (current) use of aspirin; Z79.899 Other long term (current) drug therapy; Z79.84 Long term (current) use of oral hypoglycemic drugs; Z95.5 Presence of coronary angioplasty implant and graft
CPT/HCPCS: 36415; 36416; 71045; 71275; 80048; 80053; 81003; 81015; 83605; 83735; 83880; 84484; 85025; 87040; 87086; 93005; 96365; 96375; J0456; J0696; J1650; J3490; J7050; J7120; Q9967